=== PATIENT | female | born 1940 ===

== ENCOUNTER 2024-12-26 11:25 | Emergency (ER) | payer MEDICARE, OTHER, SELFPAY ==
--- NOTE | ~2024-12-26 | XR_ITS ---
CLINICAL HISTORY: unwitnessed fall 1 view chest x-ray. Comparison: None Findings: No consolidation or effusion. Cardiac and mediastinal contours appear unremarkable. Bones unremarkable. Impression: 1. No acute pulmonary disease. This document has been electronically signed by: Rufus Cabezas MD on 12/26/2024 14:20:15
--- NOTE | ~2024-12-26 | CT_ITS ---
CLINICAL HISTORY: unwitnessed fall CT head without contrast Comparison: None Findings: No intracranial mass, midline shift, hydrocephalus, or acute hemorrhage. No CT evidence of acute ischemia. 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 A small right parafalcine extra-axial hyperdensity measuring 11 x 8 mm AP and transverse dimension (3; 55, and 1 cm craniocaudad dimension (8; 121) is compatible with a small partially calcified meningioma. Visualized paranasal sinuses and mastoid air cells normal. Orbits unremarkable. No skull fracture Impression: 1. No acute intracranial abnormalities. 2. 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 This document has been electronically signed by: Rufus Cabezas MD on 12/26/2024 14:44:43
--- NOTE | ~2024-12-26 | CT_ITS ---
CLINICAL HISTORY: unwitnessed fall CT cervical spine without contrast Comparison: None Findings: Normal limited view of the intracranial contents. Soft tissues of the neck are normal. Lung reveal minimal patchy right apical ground-glass opacity, could suggest mosaic attenuation or minimal nonspecific pneumonitis. Normal vertebral body alignment. No fractures or dislocations. Degenerative disc changes are present, more significant C3-C5. Impression: 1. No cervical vertebral fracture or traumatic malalignment. 2. Minimal nonspecific right apical ground-glass opacity. This could be related to mosaic attenuation (nonspecific although may be seen in small airways disease, versus minimal nonspecific pneumonitis or developing pneumonia). This document has been electronically signed by: Rufus Cabezas MD on 12/26/2024 14:42:31
[2024-12-26 11:38] VITALS: BP 145/58; BP 146/72; PULSE 63; PULSE 66; RESP 18; TEMP 36.3; O2SAT 95; O2SAT 96; BMI 32.4
--- NOTE | 2024-12-26 11:52 | ECG_ITS ---
Test Reason : FALL Blood Pressure : */* mmHG Vent. Rate : 64 BPM Atrial Rate : 64 BPM P-R Int : 132 ms QRS Dur : 80 ms QT Int : 420 ms P-R-T Axes : 51 23 46 degrees QTcB Int : 433 ms Normal sinus rhythm Normal ECG No previous ECGs available Referred By: Danii Larios Electronically Signed By: KWAME FERNANDES MD
--- NOTE | 2024-12-26 11:53 | ED_ITS ---
HPI - Fall General Chief Complaint: Fall Stated Complaint: unw fall, confused Time Seen by Provider: 12/26/24 11:38 Source: patient and EMS Mode of arrival: EMS Limitations: altered mental status History of Present Illness ED Provider: Danii Larios APRN HPI Narrative: This is an 84-year-old female with a history of dementia who comes from a fpc facility after an unwitnessed fall. Reportedly patient was on the toilet when staff heard a loud Bang and found her on the ground. There was a dent in the plaster all of the wall. The patient has no complaints. Of note, she is a limited historian due to her baseline history of dementia. There is no report of anticoagulation Related Data Allergies Allergy/AdvReac Type Severity Reaction Status Date / Time No Known Allergies Allergy Verified 12/26/24 11:43 Review of Systems 2 Review of Systems: Yes Unobtainable due to mental status Neurologic: Denies Abnormal speech present and Reports confusion Psychiatric: Psychiatric: Reports confusion PMF Past Medical History Attestation statement: The following information was validated with the patient. Source: old records reviewed and nursing notes reviewed Social History Social History Smoked in Last 30 Days: No Use of substances other than those prescribed or required for medical reasons: No Advance Directives: Yes Advance Directives on File: Yes Advance Directives Date on File: 12/26/24 Do you have a plan to hurt others: No Plan Physical Exam 2 Vital Signs: Vital Signs: Last Vital Signs Temp 97.3 F 12/26/24 11:38 Pulse 58 12/26/24 14:03 Resp 18 12/26/24 14:03 BP 145/63 H 12/26/24 14:03 Pulse Ox 98 12/26/24 14:03 O2 Del Method Room Air 12/26/24 14:03 BMI result Body Mass Index 32.4 Const: General: alert and confusion Orientation/consciousness: confusion Limitations: altered mental status HEENT: Other: No hemotympanum Head: Yes normal to inspection, No Wynne's sign and No raccoon eyes E ars: hearing grossly normal bilaterally General nose exam: Normal external nose present Face and sinus: Yes normal facial exam Mouth: Normal oral and palatal mucosa present Throat: Yes posterior oropharynx normal Eyes: General: appearance normal, both eyes and all related structures P upils: Equal, round and reactive pupils present Neck: Other: No cervical midline tenderness, step-offs or deformities Neck: Yes normal visual inspection and Yes full ROM Chest: Chest palpation & inspection: normal inspection of the chest Resp: Effort & Inspection: normal respiratory effort Auscultation: clear to auscultation bilaterally Cardio: Rate: regular rate Rhythm: regular rhythm Peripheral pulses: P eripheral pulses 2+ throughout GI: Inspection: Yes normal to inspection Palpation (GI): Soft to palpation and nontender Auscultation: normal bowel sounds Back/Spine/Pelvis: Thoracic/Lumbar Spine: thoracic and lumbar spine normal to inspection Skin: General skin exam: no rashes or lesions noted Neuro: Other: Strength 4/5 all 4 extremities General: moves all extremities, no focal motor deficits, normal sensation to monofilament, confusion and Unable to assess gait Cranial nerves: Yes CN's II-XII intact bilaterally, Yes Equal, round and reactive pupils present, Yes Bilaterally intact EOM present, Yes Nystagmus not present, Yes Normal facial strength present and Yes Midline tongue present Cognition (Neuro): normal cognition Speech: No Abnormal speech present Gait exam (Neuro): Unable to assess gait Sensory Exam: Normal double simultaneous stimulation for sensation Extrem: General: Yes normal to inspection Course Course Course Narrative: I reviewed the incidental findings of the CAT scan with the family at the bedside. Patient's labs unremarkable. EKG is nonischemic. Urine shows no signs of infection. Patient is at her baseline. Patient be discharged home to the [facility] via EMS. All questions answered to family. Reviewed worrisome signs and symptoms of when to return to the emergency room. Comfortable plan for discharge home. Medical Decision Making Medical Decision Making [facility] Narrative: This is an 84-year-old female with a history of dementia who comes from a fpc facility after an unwitnessed fall. Reportedly patient was on the toilet when staff heard a loud Bang and found her on the ground. There was a dent in the plaster all of the wall. The patient has no complaints. Of note, she is a limited historian due to her baseline history of dementia. There is no report of anticoagulation Patient is alert but confused at baseline She is moving all extremities equally and purposely. No overt neurological deficits. No obvious traumatic injuries noted. Unclear reason for fall Therefore patient will have a CT head/cervical spine, an EKG, labs and urinalysis Differential Diagnosis Differential Diagnoses: The differential diagnosis associated with the presentation includes Mechanical fall Syncope Admission/Observation Consideration of admission/observation: Escalation of care including admission/observation considered Lab Data MDM Lab Attestation statement: I reviewed the patient's lab results. 12/26/24 12:25 12/26/24 12:25 Labs: Lab Results 12/26/24 Range/Units 12:25 WBC 5.9 (4.8-10.8) X10*3/uL RBC 4.63 (4.20-5.50) X10*6/uL Hgb 13.1 (12.0-16.0) g/dl Hct 40.3 (37.0-47.0) % MCV 87.0 (80.0-98.0) fL MCH 28.3 (27.0-33.0) pg MCHC 32.5 (31.0-35.0) g/dl RDW 15.4 (11.0-16.0) % Plt Count 194 (160-400) X10*3/uL MPV 8.9 L (9.4-12.3) fL Immature Gran % (Auto) 0.3 (0.0-0.4) % Neut % (Auto) 59.0 (45-73) % Lymph % (Auto) 22.6 (20-40) % [place] % (Auto) 11.8 H (2-11) % Eos % (Auto) 5.8 H (0-4) % Baso % (Auto) 0.5 (0-2) % Lymph # (Auto) 1.3 (1.2-4.9) X10*3/uL [place] # (Auto) 0.7 (0.1-1.2) X10*3/uL Eos # (Auto) 0.3 (0.0-0.4) X10*3/uL Baso # (Auto) 0.0 (0.0-0.2) X10*3/uL Abs Immat Gran (auto) 0.02 (0.00-0.03) X10*3/uL Absolute Neuts (auto) 3.5 (2.0-8.3) x10*3/uL Absolute Nucleated RBC 0.000 (0.0-0.012) X10*3/uL Nucleated RBC % (auto) 0.0 (0.0-0.2) /100WBC Sodium 140 (135-145) mmol/L Potassium 4.0 (3.3-5.1) mmol/L Chloride 106 (96-108) mmol/L Carbon Dioxide 28 (22-29) mmol/L Anion Gap 10 L (12-20) BUN 17 H (9-16) mg/dL Creatinine 0.68 (0.5-1.4) mg/dL Estim Creat Clear Calc 65.1 Estimated GFR > 60 Random Glucose 99 (60-115) mg/dL Calcium 9.4 (8.4-10.2) mg/dL Total Bilirubin 0.3 (0.0-1.0) mg/dL Direct Bilirubin 0.1 (0.0-0.5) mg/dL AST 24 (5-31) U/L ALT 17 (0-31) U/L Alkaline Phosphatase 92 (39-117) U/L Troponin I High Sens 4.2 (<3.5-17.0) ng/L Total Protein 6.8 (6.5-8.0) g/dL Albumin 4.2 (3.5-5.0) g/dL Urine Color Yellow Urine Appearance Clear Urine pH 6.0 (5.0-9.0) Ur Specific [place] 1.020 (1.005-1.025) Urine Protein Negative (Neg-Trace) mg/dL Urine Glucose (UA) Negative (Negative) mg/dL Urine Ketones Negative (Negative) mg/dL Urine Blood Negative (Negative) Urine Nitrite Negative (Negative) Ur Leukocyte Esterase Trace H (Negative) Urine RBC 0-2 (0-2) /HPF Urine WBC 0-5 (0-5) /HPF Ur Squamous Epith Cells 0-2 (0-2) /HPF Urine Bacteria None Seen (None Seen) Hyaline Casts 0-2 (0-2) /LPF Independent Interpretation I performed an independent interpretation of an: EKG, Plain X-Ray and CT Scan Interpretation: I independently viewed the CT scan and the chest x-ray and agree with the radiology report I independently reviewed the EKG which shows normal sinus rhythm with a rate of 64, normal WI, normal QRS Radiology Impression Discussion of test interpretation with radiology: I have reviewed the radiologist's reading. Radiologist Impression: [address] [address] [address] Scan Report Signed Patient: Tish Paez MR#: [id number] : 1940 Acct:[id number] Age/Sex: 84 / F ADM Date: 12/26/24 Loc: HO.ED Attending Dr: Ordering Physician: Danii Larios NP Date of Service: 12/26/24 Procedure(s): CT head/brain wo IV con Accession Number(s): [id number] cc: Ximena Luis MD; Danii Larios FARM EQUIPMENT ASSEMBLER~ Report Number: [id number]: Total DLP = 0.00 mGy-cm Reason for Exam: unwitnessed fall CLINICAL HISTORY: unwitnessed fall CT head without contrast Comparison: None Findings: No intracranial mass, midline shift, hydrocephalus, or acute hemorrhage. No CT evidence of acute ischemia. 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 A small right parafalcine extra-axial hyperdensity measuring 11 x 8 mm AP and transverse dimension (3; 55, and 1 cm craniocaudad dimension (8; 121) is compatible with a small partially calcified meningioma. Visualized paranasal sinuses and mastoid air cells normal. Orbits unremarkable. No skull fracture Impression: 1. No acute intracranial abnormalities. 2. 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 This document has been electronically signed by: Rufus Cabezas MD on 12/26/2024 14:44:[address] [address] [address] Scan Report Signed Patient: Tish Paez MR#: [id number] : 1940 Acct:[id number] Age/Sex: 84 / F ADM Date: 12/26/24 Loc: .ED Attending Dr: Ordering Physician: Danii Larios NP Date of Service: 12/26/24 Procedure(s): CT cervical spine wo IV con Accession Number(s): [id number] cc: Ximena Luis MD; Danii Larios FARM EQUIPMENT ASSEMBLER~ Report Number: [id number]: Total DLP = 921.00 mGy-cm Reason for Exam: unwitnessed fall CLINICAL HISTORY: unwitnessed fall CT cervical spine without contrast Comparison: None Findings: Normal limited view of the intracranial contents. Soft tissues of the neck are normal. Lung reveal minimal patchy right apical ground-glass opacity, could suggest mosaic attenuation or minimal nonspecific pneumonitis. Normal vertebral body alignment. No fractures or dislocations. Degenerative disc changes are present, more significant C3-C5. Impression: 1. No cervical vertebral fracture or traumatic malalignment. 2. Minimal nonspecific right apical ground-glass opacity. This could be related to mosaic attenuation (nonspecific although may be seen in small airways disease, versus minimal nonspecific pneumonitis or developing pneumonia). This document has been electronically signed by: Rufus Cabezas MD on 12/26/2024 14:42:31 [place] [address] XRay Report Signed Patient: Tish Paez MR#: [id number] : 1940 Acct:[id number] Age/Sex: 84 / F ADM Date: 12/26/24 Loc: .ED Attending Dr: Ordering Physician: Danii Larios NP Date of Service: 12/26/24 Procedure(s): XR chest 1V Accession Number(s): [id number] cc: Ximena Luis MD; Danii Larios NP~ Reason for Exam: unwitnessed fall CLINICAL HISTORY: unwitnessed fall 1 view chest x-ray. Comparison: None Findings: No consolidation or effusion. Cardiac and mediastinal contours appear unremarkable. Bones unremarkable. Impression: 1. No acute pulmonary disease. This document has been electronically signed by: Rufus Cabezas MD on 12/26/2024 14:20:15 Independent Historian Clinical information obtained from an independent historian. History obtained from or confirmed by: EMS Discharge Plan Discharge Clinical Impression: Fall Patient Disposition: Xfer SNF Transfer Details: [facility] Instructions: Fall Prevention for Older Adults (ED) Additional Instructions: Blood work is reassuring Urine shows no signs of infection Your CAT scan of her head shows incidental finding of a meningioma on the right side Your CAT scan of your neck showed potential pneumonia but your x-ray looks normal and you have no cough or fever and so I doubt that you have pneumonia Referrals: Ximena Luis MD [Primary Care Provider, Medical] Print Language: Citizen Of [place]
--- OUTSIDE RECORDS SUMMARY | 2024-12-26 12:26 | XMS_ITS | Encounter Summary ---
Author Organization [email or web address] Address [address] [place] [address] Care Team Providers Care Morgue Keeper Name Role Phone Kandace Dukesfer MICHAEL Primary Care Provider Encounter Details Date Type Department Care Team (Late st Contact Info) Description 12/01/2024 Lab Requisition [facility] - Main Lab [address] [facility] [place] [address] Ximena Suazo MD [address] [place] [address] Disorientation, unspecified; Urinary tract infection, site not specified Social History Tobacco Use Types Packs/Day Years Used Date Smoking Tobacco: Never Assessed Comments Unknown Sex and Gender Information Value Date Recorded Sex Assigned at Not on file Legal Sex Female 9:39 AM EDT Gender Identity Not on file Sexual Orientation Not on file documented as of this encounter Plan of Treatment Not on file documented as of this encounter Procedures Procedure Name Priority Date/Time Associated Diagnosis Comments URINALYSIS WITH REFLEX MICROSCOPIC AND CULTURE Routine 12/01/2024 6:50 AM EDT Disorientation, unspecified Urinary tract infection, site not specified MAHER URINE CULTURE TUBE Routine 12/01/2024 6:50 AM EDT Disorientation, unspecified Urinary tract infection, site not specified URINALYSIS WITH REFLEX MICROSCOPIC AND CULTURE Routine 12/01/2024 6:50 AM EDT Disorientation, unspecified Urinary tract infection, site not specified CULTURE URINE Routine 12/01/2024 6:50 AM EDT Disorientation, unspecified Urinary tract infection, site not specified documented in this encounter Results * Culture urine (12/01/2024 6:50 AM EDT) [facility] Culture, Urine 50,000-99,000 CFU/mL Mixed urogenital lindsay, no uropathogens present. Suggest repeat specimen if clinically indicated. 12/02/2024 9:57 AM [facility] Urine Urine specimen obtained by clean catch procedure / Unknown Non-blood Collection / Unknown 12/01/2024 6:50 AM EDT 12/01/2024 11:54 AM EDT us May Gabriele GAMEZ LAB MICROBIOLOGY - GENER AL ORDERABLES Final Result [facility] [address] [place] [address], [place] [phone] * (ABNORMAL) Urinalysis with reflex microscopic and culture (12/01/2024 6:50 AM EDT) [facility] Specific [place] Urine 1.020 1.003 - 1.030 LAB URINALYSIS - AUTOMATED METHOD 12/01/2024 11:54 AM [facility] pH, Urine 7.0 5.0 - 8.0 pH LAB URINALYSIS - AUTOMATED METHOD 12/01/2024 11:54 AM [facility] Leukocytes, Urine Trace(A) Negative LAB URINALYSIS - AUTOMATED METHOD 12/01/2024 11:54 AM [facility] Nitrite, Urine Negative Negative LAB URINALYSIS - AUTOMATED METHOD 12/01/2024 11:54 AM [facility] Protein, Urine Negative <=Trace mg/dL LAB URINALYSIS - AUTOMATED METHOD 12/01/2024 11:54 AM [facility] Glucose, Urine Negative Negative mg/dL LAB URINALYSIS - AUTOMATED METHOD 12/01/2024 11:54 AM [facility] Ketones, Urine Negative Negative mg/dL LAB URINALYSIS - AUTOMATED METHOD 12/01/2024 11:54 AM EDT [facility] Urobilinogen, Urine 1.0 0.2 - 1.0 mg/dL LAB URINALYSIS - AUTOMATED METHOD 12/01/2024 11:54 AM [facility] Bilirubin, Urine Negative Negative LAB URINALYSIS - AUTOMATED METHOD 12/01/2024 11:54 AM [facility] Blood, Urine Negative Negative LAB URINALYSIS - AUTOMATED METHOD 12/01/2024 11:54 AM [facility] RBC, Urine 1.9 0 - 4 /HPF LAB URINALYSIS - AUTOMATED METHOD 12/01/2024 11:54 AM [facility] WBC, Urine 2.2 0 - 4 /HPF LAB URINALYSIS - AUTOMATED METHOD 12/01/2024 11:54 AM [facility] Squamous Epithelial, Urine 30 0 - 60 /LPF LAB URINALYSIS - AUTOMATED METHOD 12/01/2024 11:54 AM [facility] Bacteria, Urine Negative Negative /HPF LAB URINALYSIS - AUTOMATED METHOD 12/01/2024 11:54 AM [facility] Hyaline Casts, Urine 0.0 0 - 3 /LPF LAB URINALYSIS - AUTOMATED METHOD 12/01/2024 11:54 AM [facility] Urine Urine specimen obtained by clean catch procedure / Unknown Non-blood Collection / Unknown 12/01/2024 6:50 AM EDT 12/01/2024 11:33 AM EDT us May Gabriele GAMEZ LAB URINE ORDERABLES Fin al Result [facility] [address] [place] [address], [place] [phone] * Maher urine culture tube (12/01/2024 6:50 AM EDT) Extra Tube Hold for add-ons. 12/01/2024 1:01 PM EDT [facility] Comment:Auto resulted. Urine Urine specimen obtained by clean catch procedure / Unknown Non-blood Collection / Unknown 12/01/2024 6:50 AM EDT 12/01/2024 11:33 AM EDT us July Gabriele GAMEZ LAB URINE ORDERABLES Fin al Result [facility] [address] [place] [address], documented in this encounter Visit Diagnoses Diagnosis Disorientation, unspecified Urinary tract infection, site not specified documented in this encounter Care Teams Morgue Keeper Relationship Specialty Start Date End Date Lakeisha Dukes NP [address] [place] [address] [address] [place], [place] PCP - General Nurse Practitioner 11/18/24 documented as of this encounter
--- OUTSIDE RECORDS SUMMARY | 2024-12-26 12:26 | XMS_ITS | Encounter Summary ---
Author Organization [employer] Address [address] [place] [address] Care Team Providers Care Warehouse Worker 2Nd Shift Name Role Phone Lakeisha Dukes NP Primary Care Provider [phone] Encounter Details Date Type Department Care Team (Late st Contact Info) Description 11/18/2024 Lab Requisition [facility] - Main Lab [address] [place] [address] Lakeisha Dukes NP [address] [place], [place] Weakness; Heart failure, unspecified (CMS/HCC V24, CMS/HCC V28) Social History Tobacco Use Types Packs/Day Years [...] Procedure Name Priority Date/Time Associated Diagnosis Comments CBC WITH AUTO DIFFERENTIAL Routine 11/18/2024 9:04 AM EDT Weakness Heart failure, unspecified (CMS/HCC V24, CMS/HCC V28) CBC AND DIFFERENTIAL Routine 11/18/2024 9:04 AM EDT Weakness Heart failure, unspecified (CMS/HCC V24, CMS/HCC V28) COMPREHENSIVE METABOLIC PANEL Routine 11/18/2024 9:04 AM EDT Weakness Heart failure, unspecified (CMS/HCC V24, CMS/HCC V28) documented in this encounter Results * CBC auto differential (11/18/2024 9:04 AM EDT) WBC 6.5 4.8 - 10.8 K/mcL LAB HEMETOLOGY METHOD 11/18/2024 10:13 AM [facility] RBC 4.80 3.80 - 4.80 M/mcL LAB HEMETOLOGY METHOD 11/18/2024 10:13 AM [facility] Hemoglobin 13.5 11.5 - 16.0 g/dL LAB HEMETOLOGY METHOD 11/18/2024 10:13 AM [facility] Hematocrit 42.1 35.0 - 47.0 % LAB HEMETOLOGY METHOD 11/18/2024 10:13 AM [facility] MCV 87.5 79.0 - 98.0 FL LAB HEMETOLOGY METHOD 11/18/2024 10:13 AM [facility] MCH 28.1 27.0 - 32.0 pcg LAB HEMETOLOGY METHOD 11/18/2024 10:13 AM [facility] MCHC 32.1 32.0 - 37.0 g/dL LAB HEMETOLOGY METHOD 11/18/2024 10:13 AM [facility] RDW 14.6 11.0 - 15.0 % LAB HEMETOLOGY METHOD 11/18/2024 10:13 AM [facility] Platelets 209 130 - 400 K/mcL LAB HEMETOLOGY METHOD 11/18/2024 10:13 AM [facility] MPV 9.6 7.0 - 11.0 FL LAB HEMETOLOGY METHOD 11/18/2024 10:13 AM [facility] NRBC 0.0 <1.0 % LAB HEMETOLOGY METHOD 11/18/2024 10:13 AM [facility] NRBC Absolute 0.00 <0.10 K/mcL LAB HEMETOLOGY METHOD 11/18/2024 10:13 AM [facility] Neutrophils Relative 62.1 % LAB HEMETOLOGY METHOD 11/18/2024 10:13 AM [facility] Lymphocytes Relative 24.1 % LAB HEMETOLOGY METHOD 11/18/2024 10:13 AM [facility] Monocytes Relative 10.4 % LAB HEMETOLOGY METHOD 11/18/2024 10:13 AM [facility] Eosinophils Relative 2.8 % LAB HEMETOLOGY METHOD 11/18/2024 10:13 AM [facility] Basophils Relative 0.3 % LAB HEMETOLOGY METHOD 11/18/2024 10:13 AM [facility] Immature Granulocytes Relative 0.3 % LAB HEMETOLOGY METHOD 11/18/2024 10:13 AM [facility] Neutrophils Absolute 4.04 1.50 - 7.00 K/mcL LAB HEMETOLOGY METHOD 11/18/2024 10:13 AM [facility] Lymphocytes Absolute 1.57 1.00 - 5.00 K/mcL LAB HEMETOLOGY METHOD 11/18/2024 10:13 AM [facility] Monocytes Absolute 0.68 0.20 - 1.00 K/mcL LAB HEMETOLOGY METHOD 11/18/2024 10:13 AM [facility] Eosinophils Absolute 0.18 0.00 - 0.50 K/mcL LAB HEMETOLOGY METHOD 11/18/2024 10:13 AM [facility] Basophils Absolute 0.02 0.00 - 0.20 K/mcL LAB HEMETOLOGY METHOD 11/18/2024 10:13 AM [facility] Immature Granulocytes Absolute 0.02 0.00 - 0.03 K/mcL LAB HEMETOLOGY METHOD 11/18/2024 10:13 AM [facility] Blood Venous blood specimen / Unknown Venipuncture / Unknown 11/18/2024 9:04 AM EDT 11/18/2024 9:57 AM EDT us Lakeisha Dukes PROCESS DESIGNER LAB BLOOD ORDERABLES Final R esult [facility] [address] [place] [address], [place] [phone] * Comprehensive metabolic panel (11/18/2024 9:04 AM EDT) Sodium 140 133 - 145 mmol/L LAB CHEMISTRY METHOD 11/18/2024 11:00 AM [facility] Potassium 4.2 3.5 - 5.5 mmol/L LAB CHEMISTRY METHOD 11/18/2024 11:00 AM [facility] Comment:Hemolysis present Chloride 106 96 - 110 mmol/L LAB CHEMISTRY METHOD 11/18/2024 11:00 AM [facility] CO2 27 21 - 32 mmol/L LAB CHEMISTRY METHOD 11/18/2024 11:00 AM [facility] Anion Gap 7 3 - 11 LAB CHEMISTRY METHOD 11/18/2024 11:00 AM [facility] Glucose 86 70 - 100 mg/dL LAB CHEMISTRY METHOD 11/18/2024 11:00 AM [facility] BUN 17 5 - 25 mg/dL LAB CHEMISTRY METHOD 11/18/2024 11:00 AM [facility] Creatinine 0.58 0.50 - 1.10 mg/dL LAB CHEMISTRY METHOD 11/18/2024 11:00 AM [facility] eGFR 89 >=60 mL/min/1. 73m2 LAB CHEMISTRY METHOD 11/18/2024 11:00 AM [facility] Comment:Calculation based on the Chronic Kidney Disease Epidemiology Collaboration (CKD-EPI) equation refit without adjustment for race. BUN/Creatinine Ratio 29.3 LAB CHEMISTRY METHOD 11/18/2024 11:00 AM [facility] Calcium 9.2 8.5 - 10.5 mg/dL LAB CHEMISTRY METHOD 11/18/2024 11:00 AM [facility] AST (SGOT) 26 10 - 42 unit/L LAB CHEMISTRY METHOD 11/18/2024 11:00 AM [facility] Comment:Hemolysis present ALT (SGPT) 20 10 - 60 unit/L LAB CHEMISTRY METHOD 11/18/2024 11:00 AM [facility] Alkaline Phosphatase 89 42 - 121 unit/L LAB CHEMISTRY METHOD 11/18/2024 11:00 AM [facility] Total Protein 6.6 6.0 - 8.0 g/dL LAB CHEMISTRY METHOD 11/18/2024 11:00 AM [facility] Albumin 3.6 3.2 - 5.0 g/dL LAB CHEMISTRY METHOD 11/18/2024 11:00 AM [facility] Total Bilirubin 0.5 0.0 - 1.4 mg/dL LAB CHEMISTRY METHOD 11/18/2024 11:00 AM [facility] Blood Venous blood specimen / Unknown Venipuncture / Unknown 11/18/2024 9:04 AM EDT 11/18/2024 9:57 AM EDT us Lakeisha Dukes NP LAB BLOOD ORDERABLES Final R esult [facility] [address] [place] [address], [place] [phone] documented in this encounter Visit Diagnoses Diagnosis Weakness Other malaise and fatigue Heart failure, unspecified (CMS/HCC V24, CMS/HCC V28) Heart failure, unspecified documented in this encounter Care Teams Warehouse Worker 2Nd Shift Relationship Specialty Start Date End Date Lakeisha Dukes NP [address] [place], [place] PCP - General Nurse Practitioner 11/18/24 documented as of this encounter
--- OUTSIDE RECORDS SUMMARY | 2024-12-26 12:26 | XMS_ITS | Clinical Summary ---
Author Organization [facility] Address [address] [place] [address] Phone Care Team Providers Care Pencil Inspector Name Role Phone Lakeisha Dukes NP Primary Care Provider Encounters Date Type Department Care Team Description 12/01/2024 Lab Requisition [facility] Lab [address] [place] [phone] Ximena Islas i, MD Disorientation, unspecified; Urinary tract infection, site not specified 11/19/2024 Lab Requisition [facility] Lab [address] [place] [phone] Lakeisha Dukes NP Altered mental status, unspecified; Fall on same level, unspecified, initial encounter 11/18/2024 Lab Requisition [facility] Lab [address] [place] [phone] Lakeisha Dukes NP Weakness; Heart failure, unspecified (CMS/HCC V24, CMS/HCC V28) from Last 3 Months Social History Tobacco Use Types Packs/Day Years Used Date Smoking Tobacco: Never Assessed Comments Unknown Sex and Gender Information Value Date Recorded Sex Assigned at Not on file Legal Sex Female 9:39 AM EDT Gender Identity Not on file Sexual Orientation Not on file Plan of Treatment Health Maintenance Due Date Last Done Comments DTaP,Tdap,and Td Vaccines (1 - Tdap) 11/08/1959 Pneumococcal Vaccine: 50+ Ye ars (1 of 1 - PCV) 1990 Zoster Vaccines (1 of 2) 1990 RSV Immunization Adult Patie nts (1 - 1-dose 75+ series) 11/08/2015 Depression Screening 03/04/2024 COVID-19 Vaccine ( - 2023-2 5 season) 2024 Influenza Vaccine (#1) 2024 Falls Risk Assessment 11/18/2024 Medicare Annual Wellness Visit 11/18/2024 Osteoporosis Screening (Bone Density Screening) 11/18/2024 Social Influencers of Health Screening 11/18/2024 HIB Vaccines Aged Out No longer eligi ble based on patient's age to complete this topic HPV Vaccines Aged Out No longer eligi ble based on patient's age to complete this topic Hepatitis A Vaccines Aged Out No long er eligible based on patient's age to complete this topic Hepatitis B Vaccines Aged Out No long er eligible based on patient's age to complete this topic IPV Vaccines Aged Out No longer eligi ble based on patient's age to complete this topic MMR Vaccines Aged Out No longer eligi ble based on patient's age to complete this topic Meningococcal ACWY Vaccine Aged Out N o longer eligible based on patient's age to complete this topic Meningococcal B Vaccine Aged Out No l onger eligible based on patient's age to complete this topic RSV Immunization Patients Un cierra 20 months Aged Out No longer eligible b ased on patient's age to complete this topic Varicella Vaccines Aged Out No longer eligible based on patient's age to complete this topic Procedures Procedure Name Priority Date/Time Associated Diagnosis [...] site not specified URINALYSIS WITH REFLEX MICROSCOPIC Routine 11/18/2024 1:02 PM EDT Altered mental status, unspecified Fall on same level, unspecified, initial encounter URINALYSIS WITH REFLEX MICROSCOPIC Routine 11/18/2024 1:02 PM EDT Altered mental status, unspecified Fall on same level, unspecified, initial encounter CULTURE URINE Routine 11/18/2024 1:02 PM EDT Altered mental status, unspecified Fall on same level, unspecified, initial encounter CBC WITH AUTO DIFFERENTIAL Routine 11/18/2024 9:04 AM EDT Weakness Heart failure, unspecified ([facility] V24, [facility] V28) COMPREHENSIVE METABOLIC PANEL Routine 11/18/2024 9:04 AM EDT Weakness Heart failure, unspecified ([facility] V24, CMS/[facility] V28) CBC AND DIFFERENTIAL Routine 11/18/2024 9:04 AM EDT Weakness Heart failure, unspecified ([facility] V24, [facility] V28) from Last 3 Months Results * (ABNORMAL) Urinalysis with reflex microscopic and culture (12/01/2024 6:50 AM EDT) Pathologist [facility] Specific [place] Urine 1.020 1.003 - 1.030 LAB URINALYSIS - AUTOMATED METHOD 12/01/2024 11:54 AM [facility] LAB pH, Urine 7.0 5.0 - 8.0 pH LAB URINALYSIS - AUTOMATED METHOD 12/01/2024 11:54 AM [facility] LAB Leukocytes, Urine Trace(A) Negative LAB URINALYSIS - AUTOMATED METHOD 12/01/2024 11:54 AM [facility] LAB Nitrite, Urine Negative Negative LAB URINALYSIS - AUTOMATED METHOD 12/01/2024 11:54 AM [facility] LAB Protein, Urine Negative <=Trace mg/dL LAB URINALYSIS - AUTOMATED METHOD 12/01/2024 11:54 AM [facility] LAB Glucose, Urine Negative Negative mg/dL LAB URINALYSIS - AUTOMATED METHOD 12/01/2024 11:54 AM [facility] LAB Ketones, Urine Negative Negative mg/dL LAB URINALYSIS - AUTOMATED METHOD 12/01/2024 11:54 AM [facility] LAB Urobilinogen, Urine 1.0 0.2 - 1.0 mg/dL LAB URINALYSIS - AUTOMATED METHOD 12/01/2024 11:54 AM [facility] LAB Bilirubin, Urine Negative Negative LAB URINALYSIS - AUTOMATED METHOD 12/01/2024 11:54 AM [facility] LAB Blood, Urine Negative Negative LAB URINALYSIS - AUTOMATED METHOD 12/01/2024 11:54 AM [facility] LAB RBC, Urine 1.9 0 - 4 /HPF LAB URINALYSIS - AUTOMATED METHOD 12/01/2024 11:54 AM [facility] LAB WBC, Urine 2.2 0 - 4 /HPF LAB URINALYSIS - AUTOMATED METHOD 12/01/2024 11:54 AM [facility] LAB Squamous Epithelial, Urine 30 0 - 60 /LPF LAB URINALYSIS - AUTOMATED METHOD 12/01/2024 11:54 AM [facility] LAB Bacteria, Urine Negative Negative /HPF LAB URINALYSIS - AUTOMATED METHOD 12/01/2024 11:54 AM [facility] LAB Hyaline Casts, Urine 0.0 0 - 3 /LPF LAB URINALYSIS - AUTOMATED METHOD 12/01/2024 11:54 AM [facility] LAB Urine Urine specimen obtained by clean catch procedure / Unknown Non-blood Collection / Unknown 12/01/2024 6:50 AM EDT 12/01/2024 11:33 AM EDT us Ximena Suazo MD LAB URINE ORDERABLES Fin al Result [facility] LAB [address] [place] [address], * Maher urine culture tube (12/01/2024 6:50 AM EDT) [facility] Extra Tube Hold for add-ons. 12/01/2024 1:01 PM EDT [facility] LAB Comment:Auto resulted. Urine Urine specimen obtained by clean catch procedure / Unknown Non-blood Collection / Unknown 12/01/2024 6:50 AM EDT 12/01/2024 11:33 AM EDT us Ximena Suazo MD LAB URINE ORDERABLES Fin al Result Performing Organization Address [facility]/ZIP Co de Phone Number [facility] LAB [address] [place] [address], [place] [phone] * Culture urine (12/01/2024 6:50 AM EDT) Only the most recent of2 resultswithin the time period is included. [facility] Culture, Urine 50,000-99,000 CFU/mL Mixed urogenital lindsay, no uropathogens present. Suggest repeat specimen if clinically indicated. 12/02/2024 9:57 AM EDT [facility] Urine Urine specimen obtained by clean catch procedure / Unknown Non-blood Collection / Unknown 12/01/2024 6:50 AM EDT 12/01/2024 11:54 AM EDT us Ximena Suazo MD LAB MICROBIOLOGY - GENER AL ORDERABLES Final Result Performing Organization Address City/[facility]/ZIP Co de Phone Number [facility] [address] [place] [address], [place] [phone] * (ABNORMAL) Urinalysis with reflex microscopic (11/18/2024 1:02 PM EDT) [facility] Specific [place] Urine 1.035(H) 1.003 - 1.030 LAB URINALYSIS - AUTOMATED METHOD 11/19/2024 9:56 AM EDT [facility] pH, Urine 6.0 5.0 - 8.0 pH LAB URINALYSIS - AUTOMATED METHOD 11/19/2024 9:56 AM [facility] LAB Leukocytes, Urine Trace(A) Negative LAB URINALYSIS - AUTOMATED METHOD 11/19/2024 9:56 AM [facility] LAB Nitrite, Urine Negative Negative LAB URINALYSIS - AUTOMATED METHOD 11/19/2024 9:56 AM [facility] Protein, Urine Trace <=Trace mg/dL LAB URINALYSIS - AUTOMATED METHOD 11/19/2024 9:56 AM [facility] LAB Glucose, Urine Negative Negative mg/dL LAB URINALYSIS - AUTOMATED METHOD 11/19/2024 9:56 AM [facility] LAB Ketones, Urine Trace(A) Negative mg/dL LAB URINALYSIS - AUTOMATED METHOD 11/19/2024 9:56 AM [facility] LAB Urobilinogen, Urine 1.0 0.2 - 1.0 mg/dL LAB URINALYSIS - AUTOMATED METHOD 11/19/2024 9:56 AM [facility] LAB Bilirubin, Urine Negative Negative LAB URINALYSIS - AUTOMATED METHOD 11/19/2024 9:56 AM [facility] Blood, Urine Negative Negative LAB URINALYSIS - AUTOMATED METHOD 11/19/2024 9:56 AM [facility] RBC, Urine 3.9 0 - 4 /HPF LAB URINALYSIS - AUTOMATED METHOD 11/19/2024 9:56 AM [facility] LAB WBC, Urine 3.4 0 - 4 /HPF LAB URINALYSIS - AUTOMATED METHOD 11/19/2024 9:56 AM [facility] LAB Squamous Epithelial, Urine 20 0 - 60 /LPF LAB URINALYSIS - AUTOMATED METHOD 11/19/2024 9:56 AM [facility] LAB Bacteria, Urine Few(A) Negative /HPF LAB URINALYSIS - AUTOMATED METHOD 11/19/2024 9:56 AM [facility] LAB Hyaline Casts, Urine 0.0 0 - 3 /LPF LAB URINALYSIS - AUTOMATED METHOD 11/19/2024 9:56 AM EDT [facility] Urine Urine specimen obtained by clean catch procedure / Unknown Non-blood Collection / Unknown 11/18/2024 1:02 PM EDT 11/19/2024 8:31 AM EDT Lakeisha Dukes MAINS AND SERVICE SUPERVISOR LAB URINE ORDERABLES Final R esult [facility] [address] [place] [address], * CBC auto differential (11/18/2024 9:04 AM EDT) WBC 6.5 4.8 - 10.8 K/mcL LAB HEMETOLOGY METHOD 11/18/2024 10:13 AM [facility] LAB RBC 4.80 3.80 - 4.80 M/mcL LAB HEMETOLOGY METHOD 11/18/2024 10:13 AM [facility] LAB Hemoglobin 13.5 11.5 - 16.0 g/dL LAB HEMETOLOGY METHOD 11/18/2024 10:13 AM [facility] LAB Hematocrit 42.1 35.0 - 47.0 % LAB HEMETOLOGY METHOD 11/18/2024 10:13 AM [facility] LAB MCV 87.5 79.0 - 98.0 FL LAB HEMETOLOGY METHOD 11/18/2024 10:13 AM [facility] LAB MCH 28.1 27.0 - 32.0 pcg LAB HEMETOLOGY METHOD 11/18/2024 10:13 AM [facility] LAB MCHC 32.1 32.0 - 37.0 g/dL LAB HEMETOLOGY METHOD 11/18/2024 10:13 AM [facility] LAB RDW 14.6 11.0 - 15.0 % LAB HEMETOLOGY METHOD 11/18/2024 10:13 AM [facility] LAB Platelets 209 130 - 400 K/mcL LAB HEMETOLOGY METHOD 11/18/2024 10:13 AM [facility] LAB MPV 9.6 7.0 - 11.0 FL LAB HEMETOLOGY METHOD 11/18/2024 10:13 AM [facility] LAB NRBC 0.0 <1.0 % LAB HEMETOLOGY METHOD 11/18/2024 10:13 AM [facility] LAB NRBC Absolute 0.00 <0.10 K/mcL LAB HEMETOLOGY METHOD 11/18/2024 10:13 AM [facility] LAB Neutrophils Relative 62.1 % LAB HEMETOLOGY METHOD 11/18/2024 10:13 AM [facility] LAB Lymphocytes Relative 24.1 % LAB HEMETOLOGY METHOD 11/18/2024 10:13 AM [facility] LAB Monocytes Relative 10.4 % LAB HEMETOLOGY METHOD 11/18/2024 10:13 AM [facility] LAB Eosinophils Relative 2.8 % LAB HEMETOLOGY METHOD 11/18/2024 10:13 AM [facility] LAB Basophils Relative 0.3 % LAB HEMETOLOGY METHOD 11/18/2024 10:13 AM [facility] LAB Immature Granulocytes Relative 0.3 % LAB HEMETOLOGY METHOD 11/18/2024 10:13 AM [facility] LAB Neutrophils Absolute 4.04 1.50 - 7.00 K/mcL LAB HEMETOLOGY METHOD 11/18/2024 10:13 AM [facility] LAB Lymphocytes Absolute 1.57 1.00 - 5.00 K/mcL LAB HEMETOLOGY METHOD 11/18/2024 10:13 AM [facility] LAB Monocytes Absolute 0.68 0.20 - 1.00 K/[facility] LAB HEMETOLOGY METHOD 11/18/2024 10:13 AM EDT [facility] LAB Eosinophils Absolute 0.18 0.00 - 0.50 K/[facility] LAB HEMETOLOGY METHOD 11/18/2024 10:13 AM EDT [facility] LAB Basophils Absolute 0.02 0.00 - 0.20 K/[facility] LAB HEMETOLOGY METHOD 11/18/2024 10:13 AM EDT [facility] LAB Immature Granulocytes Absolute 0.02 0.00 - 0.03 K/[facility] 11/18/2024 10:13 AM [facility] LAB Blood Venous blood specimen / Unknown Venipuncture / Unknown 11/18/2024 9:04 AM EDT 11/18/2024 9:57 AM EDT us Lakeisha Dukes MAINS AND SERVICE SUPERVISOR LAB BLOOD ORDERABLES Final R esult [facility] [address] [place] [address], * Comprehensive metabolic panel (11/18/2024 9:04 AM EDT) Sodium 140 133 - 145 mmol/L LAB CHEMISTRY METHOD 11/18/2024 11:00 AM [facility] LAB Potassium 4.2 3.5 - 5.5 mmol/L LAB CHEMISTRY METHOD 11/18/2024 11:00 AM [facility] LAB Comment:Hemolysis present Chloride 106 96 - 110 mmol/L LAB CHEMISTRY METHOD 11/18/2024 11:00 AM [facility] CO2 27 21 - 32 mmol/L LAB CHEMISTRY METHOD 11/18/2024 11:00 AM [facility] LAB Anion Gap 7 3 - 11 LAB CHEMISTRY METHOD 11/18/2024 11:00 AM [facility] LAB Glucose 86 70 - 100 mg/dL LAB CHEMISTRY METHOD 11/18/2024 11:00 AM [facility] BUN 17 5 - 25 mg/dL LAB CHEMISTRY METHOD 11/18/2024 11:00 AM [facility] LAB Creatinine 0.58 0.50 - 1.10 mg/dL LAB CHEMISTRY METHOD 11/18/2024 11:00 AM [facility] LAB eGFR 89 >=60 mL/min/1. 73m2 LAB CHEMISTRY METHOD 11/18/2024 11:00 AM [facility] LAB Comment:Calculation based on the Chronic Kidney Disease Epidemiology Collaboration (CKD-EPI) equation refit without adjustment for race. BUN/Creatinine Ratio 29.3 LAB CHEMISTRY METHOD 11/18/2024 11:00 AM [facility] Calcium 9.2 8.5 - 10.5 mg/dL LAB CHEMISTRY METHOD 11/18/2024 11:00 AM [facility] LAB AST (SGOT) 26 10 - 42 unit/L LAB CHEMISTRY METHOD 11/18/2024 11:00 AM [facility] LAB Comment:Hemolysis present ALT (SGPT) 20 10 - 60 unit/L LAB CHEMISTRY METHOD 11/18/2024 11:00 AM [facility] LAB Alkaline Phosphatase 89 42 - 121 unit/L LAB CHEMISTRY METHOD 11/18/2024 11:00 AM [facility] LAB Total Protein 6.6 6.0 - 8.0 g/dL LAB CHEMISTRY METHOD 11/18/2024 11:00 AM [facility] LAB Albumin 3.6 3.2 - 5.0 g/dL LAB CHEMISTRY METHOD 11/18/2024 11:00 AM [facility] Total Bilirubin 0.5 0.0 - 1.4 mg/dL LAB CHEMISTRY METHOD 11/18/2024 11:00 AM [facility] Blood Venous blood specimen / Unknown Venipuncture / Unknown 11/18/2024 9:04 AM EDT 11/18/2024 9:57 AM EDT Lakeisha Dukes MAINS AND SERVICE SUPERVISOR LAB BLOOD ORDERABLES Final R esult [facility] ([facility]) [facility] [address] [place] [address], [place] [phone] from Last 3 Months Insurance MEDICARE [facility] Care Teams Pencil Inspector Relationship Specialty Start Date End Date Lakeisha Dukes NP [address] [place], [place] PCP - General Nurse Practitioner 11/18/24
--- OUTSIDE RECORDS SUMMARY | 2024-12-26 12:26 | XMS_ITS | Encounter Summary ---
Author Organization [employer] Address [address] [place] [address] Care Team Providers Care Paleontology Teacher Name Role Phone Lakeisha Dukes NP Primary Care Provider Encounter Details Date Type Department Care Team (Late st Contact Info) Description 11/19/2024 Lab Requisition [facility] - [facility] Lab [address] [facility] [employer] [place] [address] Lakeisha Dukes NP [address] [place], [place] Altered mental status, unspecified; Fall on same level, unspecified, initial encounter Social History Tobacco Use Types Packs/Day Years [...] Associated Diagnosis Comments URINALYSIS WITH REFLEX MICROSCOPIC Routine 11/18/2024 1:02 PM EDT Altered mental status, unspecified Fall on same level, unspecified, initial encounter URINALYSIS WITH REFLEX MICROSCOPIC Routine 11/18/2024 1:02 PM EDT Altered mental status, unspecified Fall on same level, unspecified, initial encounter CULTURE URINE Routine 11/18/2024 1:02 PM EDT Altered mental status, unspecified Fall on same level, unspecified, initial encounter documented in this encounter Results * (ABNORMAL) Urinalysis with reflex microscopic (11/18/2024 1:02 PM EDT) Specific [place] Urine 1.035(H) 1.003 - 1.030 LAB URINALYSIS - AUTOMATED METHOD 11/19/2024 9:56 AM [facility] LAB pH, Urine 6.0 5.0 - 8.0 pH LAB URINALYSIS - AUTOMATED METHOD 11/19/2024 9:56 AM [facility] LAB Leukocytes, Urine Trace(A) Negative LAB URINALYSIS - AUTOMATED METHOD 11/19/2024 9:56 AM [facility] LAB Nitrite, Urine Negative Negative LAB URINALYSIS - AUTOMATED METHOD 11/19/2024 9:56 AM [facility] Protein, Urine Trace <=Trace mg/dL LAB URINALYSIS - AUTOMATED METHOD 11/19/2024 9:56 AM [facility] Glucose, Urine Negative Negative mg/dL LAB URINALYSIS - AUTOMATED METHOD 11/19/2024 9:56 AM [facility] Ketones, Urine Trace(A) Negative mg/dL LAB URINALYSIS - AUTOMATED METHOD 11/19/2024 9:56 AM [facility] Urobilinogen, Urine 1.0 0.2 - 1.0 mg/dL LAB URINALYSIS - AUTOMATED METHOD 11/19/2024 9:56 AM [facility] Bilirubin, Urine Negative Negative LAB URINALYSIS - AUTOMATED METHOD 11/19/2024 9:56 AM [facility] Blood, Urine Negative Negative LAB URINALYSIS - AUTOMATED METHOD 11/19/2024 9:56 AM [facility] RBC, Urine 3.9 0 - 4 /HPF LAB URINALYSIS - AUTOMATED METHOD 11/19/2024 9:56 AM [facility] WBC, Urine 3.4 0 - 4 /HPF LAB URINALYSIS - AUTOMATED METHOD 11/19/2024 9:56 AM [facility] Squamous Epithelial, Urine 20 0 - 60 /LPF LAB URINALYSIS - AUTOMATED METHOD 11/19/2024 9:[address] [facility] Bacteria, Urine Few(A) Negative /HPF LAB URINALYSIS - AUTOMATED METHOD 11/19/2024 9:[address] [facility] Hyaline Casts, Urine 0.0 0 - 3 /LPF LAB URINALYSIS - AUTOMATED METHOD 11/19/2024 9:[address] [facility] Urine Urine specimen obtained by clean catch procedure / Unknown Non-blood Collection / Unknown 11/18/2024 1:02 PM EDT 11/19/2024 8:31 AM EDT Lakeisha Dukes NP LAB URINE ORDERABLES Final R esult Performing Organization Address City/[facility]/ZIP Co de Phone Number [facility] [address] [place] [address], [place] [phone] * Culture urine (11/18/2024 1:02 PM EDT) Culture, Urine >100,000 CFU/mL Mixed bacterial morphotypes present suggestive of possible contamination during collection. Suggest appropriate recollection if clinically indicated. 11/20/2024 12:[address] [facility] Urine Urine specimen obtained by clean catch procedure / Unknown Non-blood Collection / Unknown 11/18/2024 1:02 PM EDT 11/19/2024 8:31 AM EDT Lakeisha Dukes NP LAB MICROBIOLOGY - GENERAL O RDERABLES Final Result [facility] [address] [place] [address], [place] [phone] documented in this encounter Visit Diagnoses Diagnosis Altered mental status, unspecified Fall on same level, unspecified, initial encounter documented in this encounter Care Teams Paleontology Teacher Relationship Specialty Start Date End Date Lakeisha Dukes NP [address] [place] [address] PCP - General Nurse Practitioner 11/18/24 documented as of this encounter
[2024-12-26 12:30] LABS: MANUAL DIFF FLAG NO
[2024-12-26 12:31] LABS: Hematocrit 40.3 % (37.0-47.0); Hemoglobin 13.1 g/dl (12.0-16.0); Imm Gran Abs Auto 0.02 X10*3/uL (0.00-0.03); Imm Gran Pct Auto 0.3 % (0.0-0.4); Lymphocytes Absolute Auto 1.3 X10*3/uL (1.2-4.9); Mean Corpuscular HGB Conc 32.5 g/dl (31.0-35.0); Mean Corpuscular Hemoglobin 28.3 pg (27.0-33.0); Mean Corpuscular Volume 87.0 fL (80.0-98.0); NRBC Abs Auto 0.000 X10*3/uL (0.0-0.012); NRBC Pct Auto 0.0 /100WBC (0.0-0.2); Platelet Count 194 X10*3/uL (160-400); Red Blood Count 4.63 X10*6/uL (4.20-5.50); White Blood Count 5.9 X10*3/uL (4.8-10.8)
[2024-12-26 12:33] LABS: Appearance Urine Clear; Glucose Urine UA Negative (Negative); PH 6.0 (5.0-9.0); Specific Gravity - Urine 1.020 (1.005-1.025); UMIC TRIGGER UACC YES
[2024-12-26 13:01] LABS: Alanine Aminotransferase 17 U/L (0-31); Albumin Level 4.2 g/dL (3.5-5.0); Alkaline Phosphatase 92 U/L (39-117); Anion Gap 10 (12-20); Aspartate Amino Transferase 24 U/L (5-31); Blood Urea Nitrogen 17 mg/dL (9-16); Calcium 9.4 mg/dL (8.4-10.2); Carbon Dioxide 28 mmol/L (22-29); Chloride 106 mmol/L (96-108); Creatinine Clr Calc Pharmacy 65.1; Estimated Glomerular Filt Rate > 60; Potassium 4.0 mmol/L (3.3-5.1); Sodium 140 mmol/L (135-145); Total Protein 6.8 g/dL (6.5-8.0)
[2024-12-26 13:08] LABS: Troponin-I High Sensitivity 4.2 ng/L (<3.5-17.0)
[2024-12-26 14:03] VITALS: BP 145/63; PULSE 58; RESP 18; O2SAT 98
--- NOTE | 2024-12-26 15:25 | PC.NURSE ---
Report given to Cahvez @ [facility] @[phone]
== END 2024-12-26 17:27 | disposition skilled nursing facility (03) ==
PROVIDERS: Nurse Practitioner Family; Emergency Provider Emergency Medicine Emergency Medical Services; PCP Internal Medicine
DX: S09.90XA Unspecified injury of head, initial encounter (principal); W18.11XA Fall from or off toilet without subsequent striking against object, initial encounter; Y93.9 Activity, unspecified; Y92.9 Unspecified place or not applicable; Y99.9 Unspecified external cause status; F03.90 Unspecified dementia, unspecified severity, without behavioral disturbance, psychotic disturbance, mood disturbance, and anxiety
CPT/HCPCS: 36415; 70450; 71045; 72125; 80048; 80076; 81001; 84484; 85025; 93005; 99285

== ENCOUNTER → 2024-12-26 11:52 | Outpatient (BNV) | payer MEDICARE, OTHER, SELFPAY | PROVIDERS: Emergency Provider Emergency Medicine Emergency Medical Services; PCP Internal Medicine; Visit Provider Internal Medicine Cardiovascular Disease | DX: Z04.3 Encounter for examination and observation following other accident (principal) | CPT/HCPCS: 93010 ==